=== PATIENT | male | born 1980 | race Caucasian/White ===

== ENCOUNTER 2020-01-13 22:38 | Emergency (ER) | payer MEDICAID ==
[~2020-01-13] VITALS: Ht 170.2 cm; Wt 81.6 kg
[2020-01-13 22:38] VITALS: BP 131/78
== END 2020-01-13 23:05 | disposition home or self-care (01) ==
LOC: ER 22:41
DX: L02.01 Cutaneous abscess of face (principal); R44.0 Auditory hallucinations